=== PATIENT | male | born 1970 | race Caucasian/White ===

== ENCOUNTER 2024-11-27 22:14 | Emergency (ER) | payer OTHER, SELFPAY ==
[2024-11-27 22:16] VITALS: BP 132/86; PULSE 83; RESP 16; TEMP 36.7; O2SAT 98; BMI 47.0
[2024-11-28 01:58] VITALS: BP 170/91; PULSE 72; RESP 16; O2SAT 98
[2024-11-28 02:22] LABS: Basophils % 0.8 %; Eosinophils # 0.1 10^3/uL (0.0-0.8); Eosinophils % 1.4 %; Hematocrit 45.4 % (37-53); Lymphocytes # 1.9 10^3/uL (0.8-4.8); Lymphocytes % 36.8 %; Mean Corpuscular HGB Conc 33.7 g/dL (30-55); Mean Corpuscular Hemoglobin 31.2 pg (27-33); Mean Corpuscular Volume 92.7 fl (82-101); Mean Platelet Volume 9.2 fL (7.4-10.4); Monocytes # 0.9 10^3/uL (0.2-0.9); Monocytes % 16.7 %; Neutrophils # 2.19 10^3/uL (1.8-7.7); Neutrophils % 42.4 %; Nucleated Red Blood Cells % 0 %; Platelet Count 152 10^3/cmm (157-399); Red Cell Distribution Width 13.5 % (12.1-15.1); White Blood Count 5.16 10^3/uL (3.29-11.43)
[2024-11-28] MEDS: dexamethasone 10 mg/mL INJ IVP (02:28)
[2024-11-28] MEDS: clindamycin 900 MG/50 ML PREMIX 100 MG IV (02:30)
--- NOTE | 2024-11-28 02:33 | W.ED.SKABFB ---
HPI - Skin/Abscess/Foreign Bdy General: Chief complaint: Skin/Abscess/Foreign Body Stated complaint: bite on left bicep Time Seen by Provider: 11/28/24 01:58 History of Present Illness: 54-year-old man who presents emergency room with possible cellulitis on his left arm. He had initial round red raised lesion and then had some spreading it seemed to be going up the veins up his arm. See photographs. had tried Bactrim and warm wet compresses. Also some cortisone cream. They had marked the redness and it seemed to be getting worse. Related Data Previous Rx's ?Medication ?Instructions ?Recorded clindamycin HCl 300 mg capsule 600 mg (2 x 300 mg) PO Q6H 7 days 11/28/24 #56 caps dexamethasone 6 mg tablet 6 mg PO DAILY 5 days #5 tabs 11/28/24 Allergies Allergy/AdvReac Type Severity Reaction Status Date / Time No Known Allergies Allergy Verified 11/27/24 22:22 Review of Systems Narrative: Constitutional symptoms: Negative except as documented in HPI. Skin symptoms: Negative except as documented in HPI. Eye symptoms: Negative except as documented in HPI. ENMT symptoms: Negative except as documented in HPI. Respiratory symptoms: Negative except as documented in HPI. Cardiovascular symptoms: Negative except as documented in HPI. Gastrointestinal symptoms: Negative except as documented in HPI. Genitourinary symptoms: Negative except as documented in HPI. Musculoskeletal symptoms: Negative except as documented in HPI. Neurologic symptoms: Negative except as documented in HPI. Psychiatric symptoms: Negative except as documented in HPI. Endocrine symptoms: Negative except as documented in HPI. Physical Exam Narrative: EXAM NARRATIVE: General: Alert, no acute distress. Skin: Warm, dry. Lesion to the left palmar forearm. Appears to be a wasp sting or possibly a tick bite. Patient does not remember any bites. Could also be a cellulitis. See photograph below. Head: Normocephalic, atraumatic. Neck: Supple, trachea midline. Eye: Extraocular movements are intact. Ears, nose, mouth and throat: mucosa moist. Cardiovascular: Regular, Normal peripheral perfusion. Respiratory: Lungs are clear to auscultation, respirations are non-labored, breath sounds are equal, Symmetrical chest wall expansion. Gastrointestinal: Soft, Nontender, Non distended Musculoskeletal: Normal ROM, no deformity. Neurological: Alert and oriented, No focal neurological deficit observed. Psychiatric: Cooperative, appropriate mood & affect. Course Vital Signs: Vital signs: Vital Signs Temperature 98.1 F 11/27/24 22:16 Pulse Rate 72 11/28/24 01:58 Respiratory Rate 16 11/28/24 01:58 Blood Pressure 170/91 11/28/24 01:58 Pulse Oximetry 98 11/28/24 01:58 Oxygen Delivery Me thod Room Air 11/28/24 01:58 MDM - Skin/Abscess/Foreign Bdy Medicial Decision Making Medical decision making: Differential diagnosis including but not limited to and based on the above HPI, review of systems and physical exam: N/A patient with an animal bite: Cellulitis. abscess. osteomyelitis. fracture. foreign body (i.e. tooth) Orders placed to evaluate differential diagnosis based on the above differential, HPI and physical exam Lab Review: Laboratory results were reviewed and interpreted by myself the emergency room physician. No leukocytosis. No anemia. Renal functions mildly elevated with a creatinine of 1.5. I reviewed the patient's medical record. Reexamination: Patient remained stable. No increased work of breathing. No altered mental status. No focal motor deficits. No worsening of the lesions on his arm. Assessment and plan: Cellulitis ? IV clindamycin in the emergency room - Discharged home - Discussed plan with patient. Answered any questions. - Evaluation and treatment of this problem were appropriate in the emergency setting. Lab Data 11/28/24 02:12 11/28/24 02:12 Laboratory Results WBC 5.16 10^3/uL (3.29-11.43) 11/28/24 02:12 RBC 4.90 10^6/uL (3.85-5.65) 11/28/24 02:12 Hgb 15.30 g/dL (11.27-16.99) 11/28/24 02:12 Hct 45.4 % (37-53) 11/28/24 02:12 MCV 92.7 fl (82-101) 11/28/24 02:12 MCH 31.2 pg (27-33) 11/28/24 02:12 MCHC 33.7 g/dL (30-55) 11/28/24 02:12 RDW 13.5 % (12.1-15.1) 11/28/24 02:12 Plt Count 152 10^3/cmm (157-399) L 11/28/24 02:12 MPV 9.2 fL (7.4-10.4) 11/28/24 02:12 Neut % (Auto) 42.4 % 11/28/24 02:12 Lymph % (Auto) 36.8 % 11/28/24 02:12 [place] % (Auto) 16.7 % 11/28/24 02:12 Eos % (Auto) 1.4 % 11/28/24 02:12 Baso % (Auto) 0.8 % 11/28/24 02:12 Neut # (Auto) 2.19 10^3/uL (1.8-7.7) 11/28/24 02:12 Lymph # (Auto) 1.9 10^3/uL (0.8-4.8) 11/28/24 02:12 [place] # (Auto) 0.9 10^3/uL (0.2-0.9) 11/28/24 02:12 Eos # (Auto) 0.1 10^3/uL (0.0-0.8) 11/28/24 02:12 Baso # (Auto) 0.0 10^3/uL (0.0-0.1) 11/28/24 02:12 Nucleated RBC % (auto) 0 % 11/28/24 02:12 Nucleated RBCs # 0.0 /100WBC 11/28/24 02:12 ESR 11 mm/hr (0-10) H 11/28/24 02:12 Sodium 138 mmol/L (136-145) 11/28/24 02:12 Potassium 4.0 mmol/L (3.5-5.1) 11/28/24 02:12 Chloride 103 mmol/L (98-107) 11/28/24 02:12 Carbon Dioxide 23 mmol/L (22-29) 11/28/24 02:12 Anion Gap 16.0 (5-19) 11/28/24 02:12 BUN 11 mg/dL (6-20) 11/28/24 02:12 Creatinine 1.5 mg/dL (0.7-1.2) H 11/28/24 02:12 GFR Calculation 48.6 mL/min (90-130) L 11/28/24 02:12 Glucose 89 mg/dL (65-115) 11/28/24 02:12 Calculated Osmolality 285 mOsm/kg (285-295) 11/28/24 02:12 Lactic Acid 1.0 mmol/L (0.5-2.2) 11/28/24 02:12 Calcium 9.6 mg/dL (8.5-10.5) 11/28/24 02:12 Total Bilirubin 0.9 mg/dL (0.15-1.2) 11/28/24 02:12 AST 27 U/L (0-40) 11/28/24 02:12 ALT 38 U/L (0-41) 11/28/24 02:12 Alkaline Phosphatase 96 U/L (40-130) 11/28/24 02:12 C-Reactive Protein 27.5 mg/L (0.0-4.9) H 11/28/24 02:12 Total Protein 7.3 g/dL (6.6-8.7) 11/28/24 02:12 Albumin 4.4 g/dL (3.5-5.2) 11/28/24 02:12 Globulin 2.9 g/dL (1.3-4.6) 11/28/24 02:12 No radiology studies performed this visit Discharge Plan Discharge Patient Disposition: Home Clinical Impression: Cellulitis, Insect sting Condition: Stable Prescriptions: New clindamycin HCl 300 mg capsule 600 mg PO Q6H 7 Days Qty: 56 0RF dexamethasone 6 mg tablet 6 mg PO DAILY 5 Days Qty: 5 0RF Discharge Orders: Discharge ED (Routine); Ordered 11/28/24 Ordered By: Kimberlee Vásquez Referrals: Jose Rafael Ortiz MD [Primary Care Provider, Family Practice] Discharge Diet: Usual diet Discharge Activity: Increase activity as tolerated Patient Instructions: Cellulitis (ED), Opioid Safety, Pain Management Activity Restrictions/Additional Instructions: Thank you for choosing [facility] for your healthcare needs today. You have been screened and evaluated and felt safe for discharge. Health conditions do change or evolve sometimes and as such it is important that you follow up with your Primary Doctor to be re checked, 3-5 days is a general good time frame for follow up. You are always welcome to return to the ED for re assessment if your symptoms are worsening or you have new concerns Print Language: Vietnamese Coding Level of Care Code ED Manager Paper for Daron Woo
[2024-11-28 02:40] LABS: Alanine Aminotransferase 38 U/L (0-41); Albumin Level 4.4 g/dL (3.5-5.2); Alkaline Phosphatase 96 U/L (40-130); Aspartate Amino Transferase 27 U/L (0-40); Blood Urea Nitrogen 11 mg/dL (6-20); C Reactive Protein 27.5 mg/L (0.0-4.9); Calcium 9.6 mg/dL (8.5-10.5); Carbon Dioxide 23 mmol/L (22-29); Chloride 103 mmol/L (98-107); Creatinine Clr Calc Pharmacy 83.6812; Globulin 2.9 g/dL (1.3-4.6); Glomerular Filtration Rate 48.6 mL/min (90-130); Glucose 89 mg/dL (65-115); Osmolality Calculated 285 mOsm/kg (285-295); Sodium 138 mmol/L (136-145); Total Bilirubin 0.9 mg/dL (0.15-1.2); Total Protein 7.3 g/dL (6.6-8.7)
[2024-11-28 02:44] LABS: Erythrocyte Sedimentation Rate 11 mm/hr (0-10)
[2024-11-28 03:23] VITALS: BP 122/79; PULSE 78; RESP 16; O2SAT 98
== END 2024-11-28 03:25 | disposition home or self-care (01) ==
PROVIDERS: Emergency Provider Emergency Medicine; PCP Family Medicine
DX: L03.114 Cellulitis of left upper limb (principal); W57.XXXA Bitten or stung by nonvenomous insect and other nonvenomous arthropods, initial encounter
CPT/HCPCS: 36415; 80053; 83605; 85025; 85651; 86140; 87040; 96374; 96375; 99284; J1100; J3490

== ENCOUNTER 2024-12-03 20:48 | Emergency (ER) | payer OTHER, SELFPAY ==
--- NOTE | 2024-12-03 20:59 | ECG_ITS ---
[facility] Test Date: 2024-12-03 Pat Name: Dat Patterson Department: Room: Gender: Male Program Support Assistant: : 1970 Requested By: Kash Mcmanus Order Number: [id number] Oneill MD: Elyssa Kim M.D. Measurements Intervals [place] Rate: 107 P: 37 MN: 152 QRS: -31 QRSD: 95 T: 24 QT: 312 QTc: 418 Interpretive Statements SINUS TACHYCARDIA PATTERN CONSISTENT WITH PULMONARY DISEASE INFERIOR MYOCARDIAL INFARCTION , PROBABLY OLD [40+ ms Q WAVE AND/OR ST/T ABNORMALITY IN II/aVF] No previous ECG available for comparison Electronically Signed On 12-04-2024 18:07:16 CDT by Elyssa Kim M.D. [email or web address]
[2024-12-03 21:02] VITALS: BP 140/86; PULSE 108; RESP 16; TEMP 38; O2SAT 95; BMI 47.2
[2024-12-03 22:12] VITALS: BP 140/95; PULSE 95; RESP 20; O2SAT 97
[2024-12-03] MEDS: sodium chloride 0.9% 1,000 ML 999 ML IV (22:25)
[2024-12-03 22:26] LABS: Hematocrit 39.4 % (37-53); Mean Corpuscular HGB Conc 34.5 g/dL (30-55); Mean Corpuscular Hemoglobin 31.1 pg (27-33); Mean Corpuscular Volume 90.2 fl (82-101); Mean Platelet Volume 9.4 fL (7.4-10.4); Platelet Count 114 10^3/cmm (157-399); Red Blood Count 4.37 10^6/uL (3.85-5.65); White Blood Count 4.42 10^3/uL (3.29-11.43)
[2024-12-03 22:26] LABS: Bilirubin Urine Negative (Negative); Blood Urine Negative (Negative); Glucose Urine UA Negative (Normal); Ketones Urine Negative (Negative); Leukocyte Esterase Urine Negative (Negative); Nitrate Urine Negative (Negative); Protein Urine 1+ (Negative); Urine Appearance Clear (CLEAR); Urine Color Yellow (Yellow); pH Urine 6.5 (5-7)
[2024-12-03 22:32] LABS: Add Urine Microscopic? YES; Bacteria Urine None Seen /hpf; Hyaline Casts Urine 0-4 /lpf; RBC Urine 0-2 /hpf (0-2); Squamous Epithelial Cell Urine 0-5 /hpf (0-5); WBC Urine 0-5 /hpf (0-5)
[2024-12-03 22:42] LABS: Alanine Aminotransferase 30 U/L (0-41); Albumin Level 3.7 g/dL (3.5-5.2); Alkaline Phosphatase 78 U/L (40-130); Anion Gap 15.7 (5-19); Aspartate Amino Transferase 22 U/L (0-40); Blood Urea Nitrogen 13 mg/dL (6-20); Calcium 8.5 mg/dL (8.5-10.5); Carbon Dioxide 19 mmol/L (22-29); Chloride 101 mmol/L (98-107); Creatinine Clr Calc Pharmacy 83.9668; Globulin 2.8 g/dL (1.3-4.6); Glomerular Filtration Rate 48.6 mL/min (90-130); Glucose 108 mg/dL (65-115); Osmolality Calculated 275 mOsm/kg (285-295); Potassium 3.7 mmol/L (3.5-5.1); Sodium 132 mmol/L (136-145); Total Bilirubin 0.8 mg/dL (0.15-1.2); Total Protein 6.5 g/dL (6.6-8.7)
[2024-12-03 22:43] LABS: Lactic Sepsis W/Reflex 0.7 mmol/L (0.5-2.2)
[2024-12-03 23:01] LABS: Slide Review Slide Review Perform
[2024-12-03 23:02] LABS: Absolute Segmented Neutrophil 2.4 10/cmm (1.6-7.1); Segmented Neutrophils 55 %; Total Cells Counted 100 (0-100)
[2024-12-03 23:03] LABS: Absolute Neutrophil 2.7 10^3/cmm (1.4-6.5); Band Neutrophils Absolute 0.2 10^3/cmm (0.0-1.2); Eosinophils 0 %; Lymphocytes 23 %; Lymphocytes Absolute 1.2 10^3/cmm (1.2-3.4); Monocytes Absolute 0.4 10^3/cmm (0.1-0.6); Platelet Estimate Decreased (Normal)
--- NOTE | 2024-12-03 23:31 | ED_ITS ---
HPI - Male Genitourinary 2 General: Chief complaint: Urogenital-Male Stated complaint: fever, blood in urine with sediment Time Seen by Provider: 12/03/24 21:38 History of Present Illness: Dat Patterson, a patient with a history of renal cell carcinoma and only one kidney, presents to the ER with persistent fever and shortness of breath following a recent episode of cellulitis from an insect bite. The patient reports that his current illness began last when he was bitten by an unknown insect. The bite site developed into cellulitis, which rapidly expanded in size within an hour, prompting an ER visit. He was prescribed clindamycin and the cellulitis improved significantly by the next day. However, a few days later (either Sunday or Sunday), the patient began experiencing high fevers of 102-103?F. These fevers have been persistent and difficult to manage, as Tylenol has been ineffective in reducing them. The patient typically responds better to Motrin but avoids it due to his single kidney status. In addition to the fevers, the patient has recently developed shortness of breath with exertion. He also reports experiencing chills. The patient's performed a home urinalysis which showed blood and protein in the urine, along with small sediment described as little pepper flakes. This finding, combined with the patient's history of renal cell carcinoma and single kidney, prompted the current ER visit. During the examination, the patient reported unexpected pain when the doctor palpated his right side, specifically in the area where his remaining kidney is located. The pain was described as being up a little higher when the doctor pressed on his abdomen. The patient's mentions that he has undergone three scans since his renal cell carcinoma, all of which have been clean. His kidney function is noted to be consistently a little bit off, but not alarmingly so. Related Data Allergies Allergy/AdvReac Type Severity Reaction Status Date / Time No Known Allergies Allergy Verified 12/03/24 21:07 Review of Systems 2 General: Reports: 10 or more systems reviewed and unremarkable except in HPI and below Physical Exam 2 Const: COMMON NORMALS: no acute distress, patient oriented x3, healthy appearing, alert and well nourished HENMT: COMMON NORMALS: normocephalic HEAD & SCALP: normocephalic Eye: COMMON NORMALS: EOMs intact bilaterally Neck/C-Spine: COMMON NORMALS: full ROM and supple Resp: COMMON NORMALS: normal respiratory effort, No retractions and clear to auscultation bilaterally AUSCULTATION: clear to auscultation bilaterally Cardio: COMMON NORMALS: regular rate, regular rhythm, No gallops present (Cardio) and No murmurs present (Cardio) RATE: regular rate RHYTHM: r egular rhythm GI: COMMON NORMALS: Soft to palpation and non-tender PALPATION: Yes Soft to palpation Extremity: GENERAL: Yes normal exam except as noted Neuro: COMMON NORMALS: patient oriented x3 SENSORIUM/ORIENTATION: Yes alert Skin: COMMON NORMALS: no rashes or lesions noted GENERAL SKIN EXAM: no rashes or lesions noted Course 2 Vital Signs: Vital signs: Vital Signs Temperature 100.4 F H 12/03/24 21:02 Pulse Rate 90 12/04/24 01:36 Respiratory Rate 18 12/04/24 01:36 Blood Pressure 135/75 12/04/24 01:36 Pulse Oximetry 97 12/04/24 01:36 Oxygen Delivery Me thod Room Air 12/03/24 22:12 MDM - Male Medical Decision Making 54-year-old male presents to the emergency department for evaluation of fever and shortness of breath. Past medical history of a nephrectomy due to renal cell carcinoma.Patient did not have an elevated white count. He does have slightly low sodium. Chronic kidney disease stable at this time. Negative urine. Patient's symptoms are likely secondary to a viral illness. Return precautions were discussed and the patient was discharged home in stable condition. Lab Data 12/03/24 22:08 12/03/24 22:08 Laboratory Results WBC 4.42 10^3/uL (3.29-11.43) 12/03/24 22:08 RBC 4.37 10^6/uL (3.85-5.65) 12/03/24 22:08 Hgb 13.60 g/dL (11.27-16.99) 12/03/24 22:08 Hct 39.4 % (37-53) 12/03/24 22:08 MCV 90.2 fl (82-101) 12/03/24 22:08 MCH 31.1 pg (27-33) 12/03/24 22:08 MCHC 34.5 g/dL (30-55) 12/03/24 22:08 RDW 14.0 % (12.1-15.1) 12/03/24 22:08 Plt Count 114 10^3/cmm (157-399) L 12/03/24 22:08 MPV 9.4 fL (7.4-10.4) 12/03/24 22:08 Lymph % (Auto) Not Reportable 12/03/24 22:08 [place] % (Auto) Not Reportable 12/03/24 22:08 Lymph # (Auto) Not Reportable 12/03/24 22:08 [place] # (Auto) Not Reportable 12/03/24 22:08 Total Counted 100 (0-100) 12/03/24 22:08 Atypical Lymphs % 4.0 % (0-5) 12/03/24 22:08 Absolute Neutrophils 2.7 10^3/cmm (1.4-6.5) 12/03/24 22:08 Segmented Neutrophils 55 % 12/03/24 22:08 Band Neutrophils 5.0 % 12/03/24 22:08 Absolute Lymphocytes 1.2 10^3/cmm (1.2-3.4) 12/03/24 22:08 Lymphocytes (Manual) 23 % 12/03/24 22:08 Monocytes (Manual) 10.0 % 12/03/24 22:08 Absolute Monocytes 0.4 10^3/cmm (0.1-0.6) 12/03/24 22:08 Eosinophils (Manual) 0 % 12/03/24 22:08 Absolute Eosinophils 0.0 10^3/cmm (0.0-0.7) 12/03/24 22:08 Basophils (Manual) 0.0 % 12/03/24 22:08 Absolute Basophils 0.0 10^3/cmm (0.0-0.2) 12/03/24 22:08 Metamyelocytes 3.0 % 12/03/24 22:08 Platelet Estimate Decreased (Normal) 12/03/24 22:08 Sodium 132 mmol/L (136-145) L 12/03/24 22:08 Potassium 3.7 mmol/L (3.5-5.1) 12/03/24 22:08 Chloride 101 mmol/L (98-107) 12/03/24 22:08 Carbon Dioxide 19 mmol/L (22-29) L 12/03/24 22:08 Anion Gap 15.7 (5-19) 12/03/24 22:08 BUN 13 mg/dL (6-20) 12/03/24 22:08 Creatinine 1.5 mg/dL (0.7-1.2) H 12/03/24 22:08 GFR Calculation 48.6 mL/min (90-130) L 12/03/24 22:08 Glucose 108 mg/dL (65-115) 12/03/24 22:08 Calculated Osmolality 275 mOsm/kg (285-295) L 12/03/24 22:08 Lactic Acid 0.7 mmol/L (0.5-2.2) 12/03/24 22:08 Calcium 8.5 mg/dL (8.5-10.5) 12/03/24 22:08 Total Bilirubin 0.8 mg/dL (0.15-1.2) 12/03/24 22:08 AST 22 U/L (0-40) 12/03/24 22:08 ALT 30 U/L (0-41) 12/03/24 22:08 Alkaline Phosphatase 78 U/L (40-130) 12/03/24 22:08 Total Protein 6.5 g/dL (6.6-8.7) L 12/03/24 22:08 Albumin 3.7 g/dL (3.5-5.2) 12/03/24 22:08 Globulin 2.8 g/dL (1.3-4.6) 12/03/24 22:08 Urine Color Yellow (Yellow) 12/03/24 22:09 Urine Appearance Clear (CLEAR) 12/03/24 22:09 Urine pH 6.5 (5-7) 12/03/24 22:09 Ur Specific [place] 1.010 (1.005-1.030) 12/03/24 22:09 Urine Protein 1+ (Negative) A 12/03/24 22:09 Urine Glucose (UA) Negative (Normal) 12/03/24 22:09 Urine Ketones Negative (Negative) 12/03/24 22:09 Urine Blood Negative (Negative) 12/03/24 22:09 Urine Nitrate Negative (Negative) 12/03/24 22:09 Urine Bilirubin Negative (Negative) 12/03/24 22:09 Urine Urobilinogen 1.0 mg/dL (Negative) 12/03/24 22:09 Ur Leukocyte Esterase Negative (Negative) 12/03/24 22:09 Urine RBC 0-2 /hpf (0-2) 12/03/24 22:09 Urine WBC 0-5 /hpf (0-5) 12/03/24 22:09 Ur Squamous Epith Cells 0-5 /hpf (0-5) 12/03/24 22:09 Amorphous Sediment Not Reportable 12/03/24 22:09 Urine Bacteria None seen /hpf (NONE) 12/03/24 22:09 Hyaline Casts 0-4 /lpf H 12/03/24 22:09 No radiology studies performed this visit Discharge Plan Discharge Patient Disposition: Home Clinical Impression: Viral illness Condition: Stable Discharge Orders: Discharge ED (Routine); Ordered 12/04/24 Ordered By: Kash Mcmanus Referrals: Jose Rafael Ortiz MD [Primary Care Provider, [facility]] Discharge Diet: Advance as tolerated Discharge Activity: Resume usual activity Patient Instructions: Opioid Safety, Pain Management Activity Restrictions/Additional Instructions: Please follow-up with your primary care physician in the next 1 to 2 weeks. Return to the emergency department with any new or worsening symptoms. Print Language: Barbadian Coding Level of Care Code ED Air Press Operator for Daron Woo
[2024-12-03 23:59] VITALS: BP 117/72; PULSE 90; RESP 20; O2SAT 95
[2024-12-04 01:36] VITALS: BP 135/75; PULSE 90; RESP 18; O2SAT 97
== END 2024-12-04 01:38 | disposition home or self-care (01) ==
PROVIDERS: Emergency Provider General Practice; PCP Family Medicine
DX: B34.9 Viral infection, unspecified (principal); N18.9 Chronic kidney disease, unspecified; Z85.528 Personal history of other malignant neoplasm of kidney; Z90.5 Acquired absence of kidney
CPT/HCPCS: 36415; 80053; 81001; 83605; 85007; 85025; 87040; 93005; 96360; 99284; J7030

== ENCOUNTER 2025-01-23 13:19 | Outpatient (CLI) | payer OTHER, SELFPAY ==
--- NOTE | 2025-01-23 13:25 | CTR_ITS ---
PROCEDURE INFORMATION: Exam: CT Abdomen And Pelvis With Contrast Exam date and time: 01/23/2025 1:59 PM Age: 54 years old Clinical indication: Prior oncological surgery - nephrectomy 2019. Condition or disease; Kidney, left; Primary cancer: Left renal cell cancer; Prior surgery; Surgery date: 6+ months; Surgery type: Left nephrectomy, left testicle (hydrocele) TECHNIQUE: Imaging protocol: Computed tomography of the abdomen and pelvis with contrast. Radiation optimization: All CT scans at this facility use at least one of these dose optimization techniques: automated exposure control; mA and/or kV adjustment per patient size (includes targeted exams where dose is matched to clinical indication); or iterative reconstruction. Contrast material: OMNI 350; Contrast volume: 100 ml; Contrast route: INTRAVENOUS (IV); COMPARISON: No relevant prior studies available. RADIATION DOSE METRICS: Total DLP (mGy-cm): 1276.23 FINDINGS: Liver: Normal. No mass. Gallbladder and biliary ducts: Normal. No calcified stones. No ductal dilation. Pancreas: Normal. No ductal dilation. Spleen: Normal. No splenomegaly. Adrenal glands: Normal. No mass. Kidneys and ureters: The left kidney is surgically absent. Stomach and bowel: Unremarkable. No obstruction. No mucosal thickening. Appendix: No evidence of appendicitis. Intraperitoneal space: Unremarkable. No free air. No significant fluid collection. Vasculature: Unremarkable. No abdominal aortic aneurysm. Lymph nodes: Unremarkable. No enlarged lymph nodes. Urinary bladder: The urinary bladder is underdistended. Reproductive: Unremarkable as visualized. Bones/joints: Unremarkable. No acute fracture. Soft tissues: Surgical clips along the right perineum. CT/CT abdomen pelvis w con* [id number] IMPRESSION: No acute findings. No mass or lymphadenopathy within the visualized abdomen or pelvis.
[2025-01-23] MEDS: iohexol 350 mg/mL 500 mL Btl (per mL) PO (13:33)
[2025-01-23] MEDS: iohexol 350 mg/mL 500 mL Btl (per mL) IV (13:33)
== END 2025-01-23 13:20 | disposition home or self-care (01) ==
LOC: RAD 13:20
PROVIDERS: PCP Family Medicine; Visit Provider Family Medicine
DX: Z01.89 Encounter for other specified special examinations (principal); Z90.5 Acquired absence of kidney; N43.3 Hydrocele, unspecified; N32.89 Other specified disorders of bladder
CPT/HCPCS: 74177